=== PATIENT | male | born 1980 | race Caucasian/White ===

== ENCOUNTER 2025-06-09 13:44 | Outpatient (CLI) | payer BC, SELFPAY ==
--- NOTE | 2025-06-09 13:47 | MR_ITS ---
FINAL REPORT CLINICAL HISTORY: LBP WITH BILATERAL HIP PAIN. BILATERAL LEG PAIN, NUMBNESS AND TINGLING COMPARISON: None FINDINGS: Multiplanar MR imaging of the lumbar spine was performed without contrast. On the sagittal T2-weighted images, there is abnormal decreased signal throughout the lumbar discs. There are Modic endplate changes at the L5-S1 level, with marked decreased signal of the disc and moderate loss of height of the L5-S1 disc. The vertebrae are of normal height. The vertebral alignment is normal. L1-2: There is no significant canal stenosis or neural foraminal narrowing. L2-3: There is no significant canal stenosis or neural foraminal narrowing. L3-4: There is no significant canal stenosis or neural foraminal narrowing. L4-5: There is no significant canal stenosis or neural foraminal narrowing. L5-S1: There is a large paracentral protrusion/extrusion in the left lateral recess, producing severe left lateral recess stenosis. Mild bilateral neural foraminal narrowing is noted. IMPRESSION: L5-S1 large paracentral disc protrusion/extrusion producing severe left lateral recess narrowing. Reviewed, Interpreted and Dictated by Margarito Truong MD Transcribed by Denise Ruth Authenticated and [facility]
== END 2025-06-09 23:59 | disposition home or self-care (01) ==
LOC: RAD 13:45
PROVIDERS: PCP Chiropractor; Visit Provider Chiropractor
DX: M51.27 Other intervertebral disc displacement, lumbosacral region (principal); M79.604 Pain in right leg; M79.605 Pain in left leg; R20.0 Anesthesia of skin; R20.2 Paresthesia of skin
CPT/HCPCS: 72148